=== PATIENT | male | born 1970 | race Caucasian/White ===

== ENCOUNTER 2022-12-03 13:37 | Emergency (ER) | payer BC, SELFPAY ==
--- NOTE | ~2022-12-03 | XR_ITS ---
EXAM: XR foot LT min 3V DATE: 12/03/2022 14:05 HISTORY: patient rolled left foot while walking, lateral side pain . COMPARISON: None available. FINDINGS: Normal mineralization. No fracture or dislocation. No lytic or blastic lesion. Mild scatte red degenerative change. Large os gadolinium. Achilles and plantar enthesopathy. Dystrophic ossificat ion on the plantar fascia. No erosion or periosteal change. Soft tissues within normal limits. IMPRESSION: No acute osseous finding in the left foot. Reviewed, dictated and finalized at location K.
[2022-12-03 13:38] VITALS: BP 129/82; PULSE 91; RESP 15; TEMP 36.8; O2SAT 98
--- NOTE | 2022-12-03 15:07 | ED.LOWEXIN ---
HPI - Extremity Injury (Lower) General Chief Complaint: Extremity Injury, Lower Stated Complaint: left foot injury Time Seen by Provider: 12/03/22 14:49 History of Present Illness HPI Narrative: Patient is a 52-year-old male presenting after injuring his left foot. Patient states that he was walking when he accidentally twisted his left foot. States that he heard a loud crack and had immediate severe pain. States that he was able to ambulate though it was very painful. Denies further complaints. Related Data Allergies Allergy/AdvReac Type Severity Reaction Status Date / Time No Known Allergies Allergy Verified 12/03/22 14:46 Review of Systems Review of Systems: All systems reviewed & are unremarkable except as noted in HPI and below Exam Narrative: GENERAL: Well-appearing, in no acute distress, pleasant and cooperative HEAD: Normocephalic, atraumatic. EYES: PERRLA and EOMI. ENT: Grossly unremarkable NECK: Supple. CHEST: No respiratory distress. HEART: Regular rate and rhythm. ABDOMEN: Nondistended EXTREMITIES: Left foot with mild lateral swelling and tenderness, DP pulses 2+, no ankle tenderness, ROM intact SKIN: Warm, dry, no rash. NEURO: No focal deficits. Alert and oriented x3. PSYCH: Normal mood and affect. Course Vital Signs Vital signs: Vital Signs Temperature 98.3 F 12/03/22 13:38 Pulse Rate 91 12/03/22 13:38 Respiratory Rate 15 12/03/22 13:38 Blood Pressure 129/82 12/03/22 13:38 Pulse Oximetry 98 12/03/22 13:38 Oxygen Delivery Room Air 12/03/22 13:38 Temperature 98.3 F 12/03/22 13:38 Pulse Rate 91 12/03/22 13:38 Respiratory Rate 15 12/03/22 13:38 Blood Pressure 129/82 12/03/22 13:38 Pulse Oximetry 98 12/03/22 13:38 Oxygen Delivery Room Air 12/03/22 13:38 MDM - Extremity Injury (Lower) MDM Narrative Medical decision making narrative: Patient is a 52-year-old male presenting with left foot pain after twisting it. Vitals are stable. Exam remarkable for the above. X-rays show no acute osseous abnormalities. Discussed the reassuring imaging and appropriate supportive care. Feel he is safe for outpatient management. Patient states that he already has an orthopedic surgeon with whom he can follow-up. States he also has crutches at home already. Appropriate return precautions given. Discharged in stable condition. Differential Diagnosis Differential diagnosis: Likely ankle sprain and strain, fracture of toe and ankle fracture Medical Records Attestation: I reviewed the patient's medical records. Imaging Data Radiologist's impression: ITS Impressions Foot X-Ray 12/03/22 14:11 IMPRESSION: No acute osseous finding in the left foot. Critical Care Time Critical Care Time Critical Care Time: No Discharge Plan Discharge Clinical Impression: Foot sprain Patient Disposition: Home, Self-Care Condition: Stable Instructions: Foot Sprain (ED) Additional Instructions: X-rays show no broken bones in your foot. Please use ice, compression, elevation. Tylenol for pain control. Please follow-up with your orthopedist. You may use crutches as needed to keep the foot nonweightbearing. If your symptoms worsen, you develop chest pain, shortness of breath, numbness or weakness, vomiting, fevers >100.4F, or other concerning symptoms arise, please return to the ER. Follow-up/Referrals: Nica,MD Kira [Primary Care Provider] -
== END 2022-12-03 15:40 | disposition home or self-care (01) ==
PROVIDERS: Emergency Provider Emergency Medicine; PCP Family Medicine
DX: S93.602A Unspecified sprain of left foot, initial encounter (principal); X50.9XXA Other and unspecified overexertion or strenuous movements or postures, initial encounter
CPT/HCPCS: 73630; 99283